=== PATIENT | male | born 1975 | race African-American/Black ===

== ENCOUNTER 2016-08-25 14:50 | Emergency (ER) | payer OTHER ==
[~2016-08-25] VITALS: Ht 167.6 cm; Wt 85.0 kg
[~2016-08-25 14:50] MED LIST: CYCLOBENZAPRINE10 MG PO; FLEXERIL10 MG PO; FLOVENT 11120 INHALA IH; MELOXICAM7.5 MG PO; MOBIC15 MG PO; NAPROSYN500 MG PO; PREDNISONE20 MG PO; PROAIR HFA8.5 GM IH; ULTRAM50 MG PO
[2016-08-25] MEDS ORDERED: AMBIEN10 MG PO (15:47)
[2016-08-25] MEDS ORDERED: CYMBALTA30 MG PO ×2 (15:47)
[2016-08-25] MEDS ORDERED: ENDOCET 5-3251 EACH PO (15:48)
[2016-08-25] MEDS ORDERED: PREDNISONE20 MG PO (17:15)
[2016-08-25 18:37] VITALS: BP 122/89
== END 2016-08-25 18:38 | disposition home or self-care (01) ==
LOC: EME 14:50
DX: M54.5 Low back pain (principal); Y99.0 Civilian activity done for income or pay
CPT/HCPCS: 99281; 99284; J7512

== ENCOUNTER 2016-09-04 03:18 | Emergency (ER) | payer OTHER ==
[~2016-09-04] VITALS: Ht 167.6 cm; Wt 83.7 kg
[~2016-09-04 03:18] MED LIST changes: +AMBIEN10 MG PO; +CYMBALTA30 MG PO; +ENDOCET 5-3251 EACH PO
[2016-09-04 07:37] VITALS: BP 153/96
== END 2016-09-04 07:39 | disposition home or self-care (01) ==
LOC: EME 03:18
DX: M54.5 Low back pain (principal); M79.604 Pain in right leg; M79.605 Pain in left leg; G89.29 Other chronic pain; Z79.891 Long term (current) use of opiate analgesic
CPT/HCPCS: 72100; 99281; 99283; J1885

== ENCOUNTER 2016-10-16 16:05 | Emergency (ER) | payer OTHER ==
[~2016-10-16] VITALS: Ht 167.6 cm; Wt 79.8 kg
[2016-10-16 18:29] LABS: HEMATOCRIT 45.7 % (38.0-50.0); MCHC 32.2 G/DL (30.0-36.0); MCV 83.9 FL (86-99); MEAN PLAT.VOLUME 11.7 uM^3 (9.0-12.4); PLATELET COUNT 220 K/uL (156-360); RBC DIS.WIDTH-CV 14.2 % (11.8-14.6); RBC DIS.WIDTH-SD 43.1 % (39-53); RED BLOOD COUNT 5.45 M/uL (4.00-5.50); WHITE BLOOD COUNT 14.1 K/uL (4.1-10.2)
[2016-10-16 18:40] LABS: CHLORIDE 105 mEq/L (99-109); POTASSIUM 4.1 mEq/L (3.7-5.4); SODIUM 140 mEq/L (136-147)
[2016-10-16 18:42] LABS: GLUCOSE 98 mg/dL (70-99)
[2016-10-16 18:43] LABS: ANION GAP 10 MEQ/L (2-14)
[2016-10-16 18:44] LABS: TOTAL BILIRUBIN 0.4 mg/dL (0.0-1.0)
[2016-10-16 18:45] LABS: ALKALINE PHOSPHATASE 85 IU/L (3-129)
[2016-10-16 18:46] LABS: GFR ESTIMATE (CALCULATED) > 59 mL/min/
[2016-10-16 18:47] LABS: UREA NITROGEN (BUN) 16 mg/dL (9-23)
[2016-10-16 20:07] VITALS: BP 146/86
== END 2016-10-16 20:08 | disposition home or self-care (01) ==
LOC: EME 16:05
PROVIDERS: Physician Assistant
DX: R51 Headache (principal); R55 Syncope and collapse; M54.9 Dorsalgia, unspecified; G89.29 Other chronic pain; V47.0XXD Car driver injured in collision with fixed or stationary object in nontraffic accident, subsequent encounter
CPT/HCPCS: 70450; 80053; 85027; 93005; 99281; 99283

== ENCOUNTER 2017-09-10 04:51 | Inpatient (IN) | payer OTHER ==
[~2017-09-10] VITALS: Ht 165.1 cm; Wt 86.2 kg
[~2017-09-10 04:51] MED LIST changes: +MEDROL DOSEPAK4 MG PO; +TRAMADOL HCL50 MG PO
[2017-09-10] MEDS ORDERED: ERGOCALCIF50000 UNIT PO (05:37)
[2017-09-10] MEDS ORDERED: CLONIDINE HCL0.1 MG PO (05:38)
[2017-09-10] MEDS ORDERED: TRILEPTAL150 MG PO (05:39)
[2017-09-10 05:48] LABS: BASOPHIL (%) 0.5 % (0-1); BASOPHIL COUNT 0.1 K/uL (0-0.1); EOSINOPHIL COUNT 0.1 K/uL (0-0.3); HEMATOCRIT 40.7 % (38.0-50.0); HEMOGLOBIN 13.4 G/DL (12.5-16.6); IMMATURE GRANULOCYTE (%) 0.3 % (0.0-0.7); LYMPHOCYTE (%) 22.7 % (15-42); LYMPHOCYTE COUNT 2.4 K/uL (1.0-2.8); MCH 27.2 PG (29.0-34.0); MCHC 32.9 G/DL (30.0-36.0); MCV 82.7 FL (86-99); MONOCYTE (%) 5.9 % (3-12); MONOCYTE COUNT 0.6 K/uL (0-0.8); NEUTROPHIL (%) 69.6 % (45-76); NEUTROPHIL COUNT 7.5 K/uL (1.8-6.4); PLATELET COUNT 226 K/uL (156-360); RBC DIS.WIDTH-CV 14.2 % (11.8-14.6); RBC DIS.WIDTH-SD 42.7 % (39-53); RED BLOOD COUNT 4.92 M/uL (4.00-5.50); WHITE BLOOD COUNT 10.8 K/uL (4.1-10.2)
[2017-09-10 05:59] LABS: CHLORIDE 104 mEq/L (99-109); POTASSIUM 4.1 mEq/L (3.7-5.4); SODIUM 138 mEq/L (136-147)
[2017-09-10 06:01] LABS: GLUCOSE 95 mg/dL (70-99)
[2017-09-10 06:04] LABS: SERUM ETHYL ALCOHOL < 10 mg/dL
[2017-09-10 06:05] LABS: CREATININE 1.3 mg/dL (0.6-1.3); GFR ESTIMATE (CALCULATED) > 59 mL/min/ (58.99-99999)
[2017-09-10 06:06] LABS: UREA NITROGEN (BUN) 21 mg/dL (9-23)
[2017-09-10 08:02] LABS: AMPHETAMINE NEGATIVE (500 ng/mL); BARBITURATES NEGATIVE (200 ng/mL); BENZODIAZEPINES NEGATIVE (150 ng/mL); BUPRENORPHINE NEGATIVE (10 ng/mL); COCAINE NEGATIVE (150 ng/mL); METHADONE NEGATIVE (200 ng/mL); METHAMPHETAMINE NEGATIVE (500 ng/mL); OPIATES (MORPHINE) NEGATIVE (100 ng/mL); OXYCODONE NEGATIVE (100 ng/mL); PHENCYCLIDINE NEGATIVE (25 ng/mL); PROPOXYPHENE NEGATIVE (300 ng/mL); THC CANNABINOIDS PRESUMPTIVE POSITIVE (50 ng/mL); TRICYCLIC ANTIDEPRESSANTS NEGATIVE (300 ng/mL)
[2017-09-10 09:18] VITALS: BP 169/101
[2017-09-10 09:29] VITALS: BP 169/101
[2017-09-10 11:37] VITALS: BP 198/112
[2017-09-10 11:38] VITALS: BP 168/120
[2017-09-10 15:35] VITALS: BP 149/90
[2017-09-10 22:14] VITALS: BP 156/106
[2017-09-11 06:54] VITALS: BP 114/73
[2017-09-11 15:49] VITALS: BP 145/90
[2017-09-12 08:08] VITALS: BP 137/73
[2017-09-12] MEDS ORDERED: CLONIDINE HCL0.2 MG PO (08:54)
[2017-09-12] MEDS ORDERED: OXCARBAZEPINE300 MG PO (08:54)
== END 2017-09-12 09:18 | disposition home or self-care (01) | DRG 885 ==
LOC: EME 04:51 → EDOF 08:13 → 1WEST 08:13 → ENRESERV 09:18 → 1WEST 09-12 09:18
PROVIDERS: Emergency Medicine
DX: F33.1 Major depressive disorder, recurrent, moderate (principal); R45.851 Suicidal ideations; F41.9 Anxiety disorder, unspecified; F22 Delusional disorders; F42.9 Obsessive-compulsive disorder, unspecified; F43.10 Post-traumatic stress disorder, unspecified; F90.9 Attention-deficit hyperactivity disorder, unspecified type; Z59.0 Homelessness; G89.29 Other chronic pain; M54.9 Dorsalgia, unspecified; I10 Essential (primary) hypertension; J45.909 Unspecified asthma, uncomplicated; F17.200 Nicotine dependence, unspecified, uncomplicated
CPT/HCPCS: 80048; 84999; 85025; 90839; 97165 GO; 99281; 99285; G0480; Q0177